=== PATIENT | male | born 1975 | race Two or more races ===

== ENCOUNTER → 2016-09-13 | Outpatient (REF) | payer BC | LOC: M SFHCPLAZ 12:40 | PROVIDERS: ATTEND Internal Medicine | DX: Z13.1 Encounter for screening for diabetes mellitus (principal); Z13.220 Encounter for screening for lipoid disorders ==

== ENCOUNTER → 2016-11-14 | Outpatient (CLI) | payer BC | LOC: M OUTALCOH 08:19 | PROVIDERS: ATTEND Psychiatry & Neurology Psychiatry | DX: F10.20 Alcohol dependence, uncomplicated (principal); F11.20 Opioid dependence, uncomplicated ==

== ENCOUNTER 2016-12-01 14:00 | Outpatient (RCR) | payer BC | END 2016-12-03 | LOC: M OUTALCOH 14:00 | PROVIDERS: ATTEND Psychiatry & Neurology Psychiatry | DX: F10.20 Alcohol dependence, uncomplicated (principal); F11.20 Opioid dependence, uncomplicated ==

== ENCOUNTER 2017-02-01 15:00 | Outpatient (RCR) | payer BC | END 2017-02-02 | LOC: M OUTALCOH 15:00 | PROVIDERS: ATTEND Psychiatry & Neurology Psychiatry | DX: F10.20 Alcohol dependence, uncomplicated (principal); F11.20 Opioid dependence, uncomplicated ==

== ENCOUNTER 2017-02-03 10:14 | Outpatient (RCR) | payer BC | END 2017-03-05 | LOC: M OUTALCOH 10:14 | DX: F10.20 Alcohol dependence, uncomplicated (principal); F11.20 Opioid dependence, uncomplicated ==

== ENCOUNTER 2017-03-08 16:00 | Outpatient (RCR) | payer BC | END 2017-04-05 | LOC: M OUTALCOH 03-13 14:00 | DX: F10.20 Alcohol dependence, uncomplicated (principal); F11.20 Opioid dependence, uncomplicated ==

== ENCOUNTER 2017-04-06 09:11 | Outpatient (RCR) | payer BC, SELFPAY | END 2017-05-03 | LOC: M OUTALCOH 04-10 14:00 | DX: F10.20 Alcohol dependence, uncomplicated (principal); F11.20 Opioid dependence, uncomplicated | CPT/HCPCS: 90834 ==

== ENCOUNTER 2017-05-04 11:00 | Outpatient (RCR) | payer SELFPAY, BC | END 2017-06-03 | LOC: M OUTALCOH 05-08 16:00 | DX: F10.20 Alcohol dependence, uncomplicated (principal); F11.20 Opioid dependence, uncomplicated ==

== ENCOUNTER 2017-06-12 09:56 | Outpatient (RCR) | payer SELFPAY | END 2017-07-03 | LOC: M OUTALCOH 06-19 16:00 | DX: F10.20 Alcohol dependence, uncomplicated (principal); F11.20 Opioid dependence, uncomplicated ==

== ENCOUNTER 2017-07-13 11:00 | Outpatient (RCR) | payer BC, SELFPAY | END 2017-08-03 | LOC: M OUTALCOH 07-19 16:00 | DX: F10.20 Alcohol dependence, uncomplicated (principal); F11.20 Opioid dependence, uncomplicated ==

== ENCOUNTER 2017-08-09 16:43 | Outpatient (RCR) | payer BC | END 2017-09-02 | LOC: M OUTALCOH 16:43 | DX: F10.20 Alcohol dependence, uncomplicated (principal); F11.20 Opioid dependence, uncomplicated ==

== ENCOUNTER 2017-09-14 08:42 | Outpatient (RCR) | payer BC, MEDICAID | END 2017-10-03 | LOC: M OUTALCOH 08:42 | DX: F10.20 Alcohol dependence, uncomplicated (principal); F11.20 Opioid dependence, uncomplicated ==

== ENCOUNTER 2017-10-06 11:32 | Outpatient (RCR) | payer OTHER, BC | END 2017-11-03 | LOC: M OUTALCOH 10-30 10:00 | DX: F10.20 Alcohol dependence, uncomplicated (principal); F11.20 Opioid dependence, uncomplicated ==

== ENCOUNTER 2024-07-04 10:09 | Emergency (ER) | payer OTHER, SELFPAY ==
[~2024-07-04] VITALS: Ht 165.1 cm; Wt 145.0 kg
[2024-07-04 10:52] LABS: BASO % 0.4 % (0.0-1.0); EOS # 0.1 10^3/uL (0.0-0.5); HEMATOCRIT 43.8 % (42.0-52.0); HEMOGLOBIN 14.8 g/dl (13.5-17.5); LYMPH # 1.9 10^3/uL (1.5-5.0); LYMPH % 20.8 % (24.0-44.0); MEAN CORPUSCULAR HEMOGLOBIN 32.3 pg (27.0-33.0); MEAN CORPUSCULAR HGB CONC 33.8 g/dl (32.0-36.5); MEAN CORPUSCULAR VOLUME 95.6 fl (80.0-96.0); MONO # 0.7 10^3/uL (0.0-0.8); MONO % 7.4 % (2.0-8.0); NEUTROPHILS # 6.5 10^3/uL (1.5-8.5); NEUTROPHILS % 70.2 % (36.0-66.0); PLATELET COUNT, AUTOMATED 228 10^3/uL (150-450); RED BLOOD COUNT 4.58 10^6/uL (4.30-6.10); WHITE BLOOD COUNT 9.3 10^3/uL (4.0-10.0)
[2024-07-04 11:17] LABS: LIPASE 45 U/L (12-53)
[2024-07-04 11:19] LABS: ALKALINE PHOSPHATASE 206 U/L (40-129); ALT/SGPT 51 U/L (7.0-40); AST/SGOT 104 U/L (<34); BILIRUBIN,DIRECT 0.3 MG/DL (<0.4); BILIRUBIN,TOTAL 0.6 MG/DL (0.3-1.2); CK-MB VALUE MASS < 1.0 NG/ML (<3.6); TOTAL PROTEIN 7.5 G/DL (5.7-8.2)
[2024-07-04 11:24] LABS: CPK CREATINE PHOSPHOKINASE 144 U/L (46-171); MB/CK RELATIVE INDEX 0.69 (< OR =4)
[2024-07-04] MEDS ORDERED: NS (Normal Saline) 0.9% 1,000 ML IV ONE (12:00)
[2024-07-04] MEDS: KETOROLAC 30 MG/ML 1ML VIAL IV ONE (12:07)
[2024-07-04] MEDS ORDERED: ISOVUE-370 76% 100ML VIAL As Ordered ONE (12:07)
[2024-07-04 12:19] LABS: ETHYL ALCOHOL (ETHANOL) 0.025 % (0.000-0.010)
[2024-07-04] MEDS ORDERED: OMEP-173 PO (13:48)
[2024-07-04] MEDS ORDERED: AMOX875T2 PO (13:48)
[2024-07-04 13:53] VITALS: BP 170/87; TEMP 98.1; O2SAT 97
[2024-07-04] MEDS: PANTOPRAZOLE 40MG VIAL IV ONE (13:53)
== END 2024-07-04 14:04 | disposition home or self-care (01) ==
LOC: M ED 10:09
DX: K80.20 Calculus of gallbladder without cholecystitis without obstruction (principal); Z98.84 Bariatric surgery status; R16.0 Hepatomegaly, not elsewhere classified; K76.0 Fatty (change of) liver, not elsewhere classified
CPT/HCPCS: 74177; 80047; 80076; 82077; 82550; 82553; 83690; 84484; 85025; 93005; 96374; 96375; 99284; J1885; J2470; Q9967

== ENCOUNTER 2025-01-16 17:58 | Emergency (ER) | payer BC, SELFPAY ==
[~2025-01-16] VITALS: Ht 167.6 cm; Wt 170.0 kg
[~2025-01-16 17:58] MED LIST: AMOX875T2 PO; OMEP-173 PO
[2025-01-16 22:38] LABS: BASO # 0.0 10^3/uL (0.0-0.2); BASO % 0.5 % (0.0-1.0); EOS # 0.4 10^3/uL (0.0-0.5); EOS % 5.4 % (0.0-3.0); LYMPH # 1.6 10^3/uL (1.5-5.0); LYMPH % 24.7 % (24.0-44.0); MONO # 0.7 10^3/uL (0.0-0.8); MONO % 10.9 % (2.0-8.0); NEUTROPHILS # 3.8 10^3/uL (1.5-8.5); NEUTROPHILS % 58.3 % (36.0-66.0); PLATELET COUNT, AUTOMATED 176 10^3/uL (150-450)
[2025-01-16 23:11] LABS: C REACTIVE PROTEIN QUANTITATIV 3.07 MG/DL (<1.0)
[2025-01-16 23:12] LABS: ALT/SGPT 43 U/L (7.0-40); AST/SGOT 90 U/L (<34); CALCIUM LEVEL 8.3 MG/DL (8.5-10.1); CARBON DIOXIDE LEVEL 31 MMOL/L (20-31); CHLORIDE LEVEL 99 MMOL/L (98-107); CREATININE FOR GFR 0.75 MG/DL (0.70-1.30); GLOMERULAR FILTRATION RATE > 90.0 (>60); POTASSIUM SERUM 5.1 MMOL/L (3.5-5.1); SODIUM LEVEL 138 MMOL/L (136-145)
[2025-01-16 23:53] VITALS: BP 169/89
[2025-01-16] MEDS: FUROSEMIDE 40 MG/4 ML VIAL IV ONE (23:53)
[2025-01-16 23:58] LABS: D-DIMER QUANT 2.94 ug/mL (<0.5)
[2025-01-17 00:21] LABS: APPEARANCE, URINE CLEAR (CLEAR); BACTERIA, URINE AUTO NEGATIVE (NEGATIVE); BILIRUBIN, URINE AUTO NEGATIVE (NEGATIVE); BLOOD, URINE BLOOD NEGATIVE (NEGATIVE); GLUCOSE, URINE (UA) AUTO NEGATIVE (NEGATIVE); KETONE, URINE AUTO NEGATIVE (NEGATIVE); LEUKOCYTE ESTERASE, URINE AUTO NEGATIVE (NEGATIVE); NITRITE, URINE AUTO NEGATIVE (NEGATIVE); PROTEIN, URINE AUTO NEGATIVE (NEGATIVE); RBC, URINE AUTO 0 /HPF (0-3); SPECIFIC GRAVITY URINE AUTO 1.006 (1.002-1.035); SQUAMOUS EPITHELIAL CELL UR AU 0 /HPF (0-6); UROBILINOGEN, URINE AUTO 4.0 mg/dL (0.0-2.0); WBC, URINE AUTO 0 /HPF (0-3)
[2025-01-17 00:43] LABS: INR 1.07
[2025-01-17] MEDS ORDERED: ISOVUE-370 76% 100 ML VIAL As Ordered ONE (00:45)
[2025-01-17] MEDS: KETOROLAC 30 MG/ML 1 ML VIAL IV ONE (02:23)
[2025-01-17] MEDS ORDERED: LASI20TA3 PO (04:39)
[2025-01-17] MEDS ORDERED: POTA-150 PO (04:39)
[2025-01-17] MEDS ORDERED: ELIQ5TAB PO (04:39)
[2025-01-17 04:42] VITALS: BP 165/80; TEMP 98; O2SAT 98
[2025-01-17] MEDS: APIXABAN 5 MG TAB PO ONE (05:03)
== END 2025-01-17 05:30 | disposition home or self-care (01) ==
LOC: M ED 17:58
DX: R22.41 Localized swelling, mass and lump, right lower limb (principal); I26.99 Other pulmonary embolism without acute cor pulmonale; K76.0 Fatty (change of) liver, not elsewhere classified; I45.81 Long QT syndrome; Z79.01 Long term (current) use of anticoagulants; Z79.899 Other long term (current) drug therapy; Z98.84 Bariatric surgery status
CPT/HCPCS: 71045; 71275; 74177; 80048; 80076; 81001; 83880; 84145; 85025; 85379; 85610; 85652; 85730; 86140; 93005; 93970; 96374; 96375; 99284; J1885; J1938; Q9967

== ENCOUNTER 2025-01-22 10:55 | Inpatient (IN) | payer BC ==
[~2025-01-22] VITALS: Ht 167.6 cm; Wt 157.6 kg
[~2025-01-22 10:55] MED LIST changes: +ELIQ5TAB PO; +LASI20TA3 PO; +POTA-150 PO
[2025-01-22 11:51] LABS: APPEARANCE, URINE CLEAR (CLEAR); BACTERIA, URINE AUTO NEGATIVE (NEGATIVE); BILIRUBIN, URINE AUTO NEGATIVE (NEGATIVE); BLOOD, URINE BLOOD NEGATIVE (NEGATIVE); GLUCOSE, URINE (UA) AUTO NEGATIVE (NEGATIVE); KETONE, URINE AUTO NEGATIVE (NEGATIVE); LEUKOCYTE ESTERASE, URINE AUTO NEGATIVE (NEGATIVE); NITRITE, URINE AUTO NEGATIVE (NEGATIVE); PROTEIN, URINE AUTO NEGATIVE (NEGATIVE); RBC, URINE AUTO 0 /HPF (0-3); SPECIFIC GRAVITY URINE AUTO 1.005 (1.002-1.035); SQUAMOUS EPITHELIAL CELL UR AU 0 /HPF (0-6); UROBILINOGEN, URINE AUTO 0.2 mg/dL (0.0-2.0); WBC, URINE AUTO 0 /HPF (0-3)
[2025-01-22] MEDS: TETANUS/DIPHTH/ACEL. PERTUSSIS 0.5 ML SYR IM.IMMUN ONE (12:20)
[2025-01-22] MEDS: KETOROLAC 30 MG/ML 1 ML VIAL IV ONE (12:40)
[2025-01-22] MEDS: FUROSEMIDE 40 MG/4 ML VIAL IV ONE (12:41)
[2025-01-22 12:58] LABS: BASO # 0.0 10^3/uL (0.0-0.2); BASO % 0.4 % (0.0-1.0); EOS # 0.2 10^3/uL (0.0-0.5); EOS % 2.9 % (0.0-3.0); LYMPH # 1.2 10^3/uL (1.5-5.0); LYMPH % 15.6 % (24.0-44.0); MONO # 0.7 10^3/uL (0.0-0.8); MONO % 9.6 % (2.0-8.0); NEUTROPHILS # 5.3 10^3/uL (1.5-8.5); NEUTROPHILS % 71.2 % (36.0-66.0); PLATELET COUNT, AUTOMATED 166 10^3/uL (150-450)
[2025-01-22 13:18] LABS: ALT/SGPT 38 U/L (7.0-40); AST/SGOT 55 U/L (<34); C REACTIVE PROTEIN QUANTITATIV 4.08 MG/DL (<1.0); CALCIUM LEVEL 7.7 MG/DL (8.5-10.1); CARBON DIOXIDE LEVEL 29 MMOL/L (20-31); CHLORIDE LEVEL 95 MMOL/L (98-107); CREATININE FOR GFR 1.02 MG/DL (0.70-1.30); GLOMERULAR FILTRATION RATE > 90.0 (>60); POTASSIUM SERUM 4.0 MMOL/L (3.5-5.1); SODIUM LEVEL 135 MMOL/L (136-145)
[2025-01-22] MEDS ORDERED: BUPR1FIL SL (14:50)
[2025-01-22] MEDS ORDERED: BENA25CA4 PO (14:51)
[2025-01-22] MEDS ORDERED: HOME MED LIST COMPLETE! XX SCH (14:55)
[2025-01-22] MEDS: THIAMINE 200MG 2ML VIAL IV ONE (15:30)
[2025-01-22] MEDS: FOLIC ACID 1 MG TAB PO SCH (16:45)
[2025-01-22] MEDS: amLODIPine 5 MG TAB PO ONE (16:45)
[2025-01-22] MEDS: MULTIVITAMINS/MINERALS THERAP 1 TAB PO SCH (16:45)
[2025-01-22] MEDS: FUROSEMIDE 40 MG/4 ML VIAL IV SCH (16:46)
[2025-01-22] MEDS: traMADol 50 MG TAB PO PRN (20:33)
[2025-01-22] MEDS: APIXABAN 5 MG TAB PO SCH (20:33)
[2025-01-23 03:45] VITALS: BP 154/66; TEMP 98.4; O2SAT 97
[2025-01-23] MEDS: amLODIPine 5 MG TAB PO SCH ×2 (06:45→21:56)
[2025-01-23] MEDS: BUPRENORPHINE/NALOXONE 8-2MG SUBLINGUAL TABLET(SUBOXONE) SL SCH (08:16)
[2025-01-23] MEDS: THIAMINE 100 MG TAB PO SCH (08:17)
[2025-01-23 08:57] LABS: ALT/SGPT 31 U/L (7.0-40); AST/SGOT 47 U/L (<34); CALCIUM LEVEL 7.8 MG/DL (8.5-10.1); CARBON DIOXIDE LEVEL 31 MMOL/L (20-31); CHLORIDE LEVEL 98 MMOL/L (98-107); CREATININE FOR GFR 1.00 MG/DL (0.70-1.30); GLOMERULAR FILTRATION RATE > 90.0 (>60); MAGNESIUM LEVEL 2.1 MG/DL (1.8-2.4); POTASSIUM SERUM 3.9 MMOL/L (3.5-5.1); SODIUM LEVEL 138 MMOL/L (136-145)
[2025-01-23 13:00] VITALS: BP 169/78; TEMP 98.2; O2SAT 98
[2025-01-23 14:36] VITALS: BP 159/71
[2025-01-23 19:56] VITALS: BP 137/66; TEMP 101.5; O2SAT 97
[2025-01-23 20:25] VITALS: TEMP 100.1
[2025-01-23 21:37] LABS: INR 1.52
[2025-01-23] MEDS: SPIRONOLACTONE 25 MG TAB PO SCH (21:55)
[2025-01-23 22:00] VITALS: BP 137/66; TEMP 101.5
[2025-01-23 22:52] LABS: BASO # 0.0 10^3/uL (0.0-0.2); BASO % 0.3 % (0.0-1.0); EOS # 0.1 10^3/uL (0.0-0.5); EOS % 0.8 % (0.0-3.0); LYMPH # 0.6 10^3/uL (1.5-5.0); LYMPH % 10.6 % (24.0-44.0); MONO # 0.5 10^3/uL (0.0-0.8); MONO % 8.3 % (2.0-8.0); NEUTROPHILS # 4.8 10^3/uL (1.5-8.5); NEUTROPHILS % 79.8 % (36.0-66.0); PLATELET COUNT, AUTOMATED 148 10^3/uL (150-450)
[2025-01-23] MEDS: ACETAMINOPHEN *IV* 1,000 MG in IV 1 EA IV ONE (23:53)
[2025-01-24] VITALS (13 sets, daily range): BP systolic 123–159; BP diastolic 59–78; TEMP 98.1–102.3; O2SAT 92–97
[2025-01-24 00:47] LABS: KETONE, URINE AUTO RFX NEGATIVE (NEGATIVE); LEUKOCYTE ESTERASE UR AUTO RFX NEGATIVE (NEGATIVE); MUCUS, URINE RFX SMALL (NEGATIVE); NITRITE, URINE AUTO RFX NEGATIVE (NEGATIVE); RBC, URINE AUTO RFX 0 /HPF (0-3); SQUAM EPITHELIAL CELL UR AURFX 1 /HPF (0-6); WBC, URINE AUTO RFX 1 /HPF (0-3)
[2025-01-24] MEDS ORDERED: VANCOMYCIN HCL 1,000 MG, VIAL MATE ADAPTER 1 EACH in NS 250 ML IV ONE (01:20)
[2025-01-24] MEDS: KETOROLAC 30 MG/ML 1 ML VIAL IV ONE (01:23)
[2025-01-24] MEDS: VANCOMYCIN HCL 2,000 MG, VIAL MATE ADAPTER 1 EACH in NS 500 ML IV ONE (02:06)
[2025-01-24] MEDS: VANCOMYCIN HCL 1,250 MG, VIAL MATE ADAPTER 1 EACH in NS 250 ML IV SCH (10:10)
[2025-01-24 10:14] LABS: BASO # 0.0 10^3/uL (0.0-0.2); BASO % 0.5 % (0.0-1.0); EOS # 0.0 10^3/uL (0.0-0.5); EOS % 0.0 % (0.0-3.0); LYMPH # 0.6 10^3/uL (1.5-5.0); LYMPH % 14.3 % (24.0-44.0); MONO # 0.4 10^3/uL (0.0-0.8); MONO % 9.1 % (2.0-8.0); NEUTROPHILS # 3.4 10^3/uL (1.5-8.5); NEUTROPHILS % 75.9 % (36.0-66.0); PLATELET COUNT, AUTOMATED 132 10^3/uL (150-450)
[2025-01-24 10:31] LABS: ALT/SGPT 33 U/L (7.0-40); AST/SGOT 58 U/L (<34); CALCIUM LEVEL 8.0 MG/DL (8.5-10.1); CARBON DIOXIDE LEVEL 31 MMOL/L (20-31); CHLORIDE LEVEL 98 MMOL/L (98-107); CREATININE FOR GFR 0.90 MG/DL (0.70-1.30); GLOMERULAR FILTRATION RATE > 90.0 (>60); POTASSIUM SERUM 4.2 MMOL/L (3.5-5.1); SODIUM LEVEL 139 MMOL/L (136-145)
[2025-01-24] MEDS: FUROSEMIDE 40 MG/4 ML VIAL IV SCH (16:54)
[2025-01-24] MEDS: **hydrALAZINE** 10 MG TAB PO SCH (16:54)
[2025-01-24] MEDS: SPIRONOLACTONE 50 MG TAB PO SCH (18:00)
[2025-01-24] MEDS: ACETAMINOPHEN *IV* 1,000 MG in IV 1 EA IV ONE (19:43)
[2025-01-25] MEDS: RAMELTEON 8 MG TAB PO PRN (01:47)
[2025-01-25 04:00] VITALS: BP 155/69; TEMP 99.4; O2SAT 99
[2025-01-25 10:31] LABS: BASO # 0.0 10^3/uL (0.0-0.2); BASO % 0.8 % (0.0-1.0); EOS # 0.0 10^3/uL (0.0-0.5); EOS % 0.8 % (0.0-3.0); LYMPH # 0.9 10^3/uL (1.5-5.0); LYMPH % 23.8 % (24.0-44.0); MONO # 0.7 10^3/uL (0.0-0.8); MONO % 17.4 % (2.0-8.0); NEUTROPHILS # 2.1 10^3/uL (1.5-8.5); NEUTROPHILS % 56.9 % (36.0-66.0); PLATELET COUNT, AUTOMATED 118 10^3/uL (150-450)
[2025-01-25 10:49] LABS: VANCOMYCIN LEVEL TROUGH 18.1 UG/ML (10.0-20.0)
[2025-01-25 10:50] LABS: CALCIUM LEVEL 7.8 MG/DL (8.5-10.1); CARBON DIOXIDE LEVEL 32 MMOL/L (20-31); CHLORIDE LEVEL 100 MMOL/L (98-107); CREATININE FOR GFR 0.84 MG/DL (0.70-1.30); GLOMERULAR FILTRATION RATE > 90.0 (>60); POTASSIUM SERUM 4.0 MMOL/L (3.5-5.1); SODIUM LEVEL 140 MMOL/L (136-145)
[2025-01-25 12:00] VITALS: BP 137/64; TEMP 98.5; O2SAT 98
[2025-01-25] MEDS: VANCOMYCIN HCL 1,500 MG, VIAL MATE ADAPTER 1 EACH in NS 500 ML IV SCH (13:25)
[2025-01-25 20:00] VITALS: BP 152/69; TEMP 99.3; O2SAT 98
[2025-01-26 04:27] VITALS: BP 121/55; TEMP 98.3; O2SAT 97
[2025-01-26 06:43] LABS: BASO # 0.0 10^3/uL (0.0-0.2); BASO % 0.6 % (0.0-1.0); EOS # 0.2 10^3/uL (0.0-0.5); EOS % 4.2 % (0.0-3.0); LYMPH # 1.6 10^3/uL (1.5-5.0); LYMPH % 32.2 % (24.0-44.0); MONO # 0.9 10^3/uL (0.0-0.8); MONO % 18.3 % (2.0-8.0); NEUTROPHILS # 2.1 10^3/uL (1.5-8.5); NEUTROPHILS % 44.5 % (36.0-66.0); PLATELET COUNT, AUTOMATED 115 10^3/uL (150-450)
[2025-01-26 07:18] LABS: CALCIUM LEVEL 7.3 MG/DL (8.5-10.1); CARBON DIOXIDE LEVEL 34 MMOL/L (20-31); CHLORIDE LEVEL 100 MMOL/L (98-107); CREATININE FOR GFR 0.75 MG/DL (0.70-1.30); GLOMERULAR FILTRATION RATE > 90.0 (>60); POTASSIUM SERUM 3.5 MMOL/L (3.5-5.1); SODIUM LEVEL 140 MMOL/L (136-145)
[2025-01-26] MEDS: ALPRAZolam 0.5 MG TAB PO ONE (07:48)
[2025-01-26] MEDS: POTASSIUM CHLORIDE 10MEQ SR TABLET PO ONE (09:48)
[2025-01-26] MEDS: SPIRONOLACTONE 50 MG TAB PO SCH (09:48)
[2025-01-26 12:00] VITALS: BP 128/59; TEMP 98; O2SAT 96
[2025-01-26] MEDS: ceFAZolin SODIUM 2 GM in DEXTROSE 5% (D5W) ADV/MINI-BAG 50 ML IV SCH (12:23)
[2025-01-26 19:54] VITALS: BP 140/65; TEMP 97.6; O2SAT 98
[2025-01-26] MEDS: ALPRAZolam 0.5 MG TAB PO SCH (20:11)
[2025-01-27 05:12] VITALS: BP 136/78; TEMP 98; O2SAT 98
[2025-01-27 05:59] LABS: BASO # 0.0 10^3/uL (0.0-0.2); BASO % 0.5 % (0.0-1.0); EOS # 0.4 10^3/uL (0.0-0.5); EOS % 9.6 % (0.0-3.0); LYMPH # 1.6 10^3/uL (1.5-5.0); LYMPH % 38.8 % (24.0-44.0); MONO # 0.4 10^3/uL (0.0-0.8); MONO % 10.0 % (2.0-8.0); NEUTROPHILS # 1.7 10^3/uL (1.5-8.5); NEUTROPHILS % 40.9 % (36.0-66.0); PLATELET COUNT, AUTOMATED 129 10^3/uL (150-450)
[2025-01-27 06:25] LABS: ALT/SGPT 31 U/L (7.0-40); AST/SGOT 51 U/L (<34); CALCIUM LEVEL 7.6 MG/DL (8.5-10.1); CARBON DIOXIDE LEVEL 33 MMOL/L (20-31); CHLORIDE LEVEL 100 MMOL/L (98-107); CREATININE FOR GFR 0.72 MG/DL (0.70-1.30); GLOMERULAR FILTRATION RATE > 90.0 (>60); POTASSIUM SERUM 3.7 MMOL/L (3.5-5.1); SODIUM LEVEL 141 MMOL/L (136-145)
[2025-01-27] MEDS: APIXABAN 5 MG TAB PO SCH (08:22)
[2025-01-27] MEDS: SANTYL OINT 30GM TOP SCH (08:23)
[2025-01-27 11:44] VITALS: BP 140/63; TEMP 97.8; O2SAT 94
[2025-01-27 20:00] VITALS: BP 134/60; TEMP 97.5; O2SAT 96
[2025-01-28 04:00] VITALS: BP 115/66; TEMP 98.4; O2SAT 96
[2025-01-28 06:10] LABS: BASO # 0.0 10^3/uL (0.0-0.2); BASO % 0.6 % (0.0-1.0); EOS # 0.5 10^3/uL (0.0-0.5); EOS % 9.3 % (0.0-3.0); LYMPH # 1.9 10^3/uL (1.5-5.0); LYMPH % 37.2 % (24.0-44.0); MONO # 0.6 10^3/uL (0.0-0.8); MONO % 11.1 % (2.0-8.0); NEUTROPHILS # 2.1 10^3/uL (1.5-8.5); NEUTROPHILS % 41.6 % (36.0-66.0); PLATELET COUNT, AUTOMATED 138 10^3/uL (150-450)
[2025-01-28 06:28] LABS: CALCIUM LEVEL 8.1 MG/DL (8.5-10.1); CARBON DIOXIDE LEVEL 33 MMOL/L (20-31); CHLORIDE LEVEL 99 MMOL/L (98-107); CREATININE FOR GFR 0.72 MG/DL (0.70-1.30); GLOMERULAR FILTRATION RATE > 90.0 (>60); POTASSIUM SERUM 3.8 MMOL/L (3.5-5.1); SODIUM LEVEL 141 MMOL/L (136-145)
[2025-01-28] MEDS ORDERED: AMLO1TAB24 PO (09:43)
[2025-01-28] MEDS ORDERED: HYDR-161 PO (09:43)
[2025-01-28] MEDS ORDERED: ALDA50TA2 PO (09:43)
[2025-01-28] MEDS ORDERED: LASI40TA9 PO (09:43)
[2025-01-28] MEDS ORDERED: THERTAB19 PO (09:43)
[2025-01-28] MEDS ORDERED: NYST1POW3 TOP (09:43)
[2025-01-28 11:01] VITALS: BP 155/74
[2025-01-28 12:00] VITALS: BP 166/70; TEMP 98.4; O2SAT 96
[2025-01-28 14:12] VITALS: BP 166/70; TEMP 98.4; O2SAT 96
== END 2025-01-28 15:41 | disposition home or self-care (01) | DRG 720 ==
LOC: M ED 10:55 → M ED INP 14:41 → M MS4PR 01-23 03:25
PROVIDERS: ADMIT Student in an Organized Health Care Education/Training Program; ATTEND Internal Medicine
DX: A41.01 Sepsis due to Methicillin susceptible Staphylococcus aureus (principal); I50.33 Acute on chronic diastolic (congestive) heart failure; I11.0 Hypertensive heart disease with heart failure; K74.60 Unspecified cirrhosis of liver; K76.0 Fatty (change of) liver, not elsewhere classified; G47.33 Obstructive sleep apnea (adult) (pediatric); F10.10 Alcohol abuse, uncomplicated; L40.8 Other psoriasis; Z86.711 Personal history of pulmonary embolism; Z79.01 Long term (current) use of anticoagulants; Z98.84 Bariatric surgery status; Z91.199 Patient's noncompliance with other medical treatment and regimen due to unspecified reason; L03.115 Cellulitis of right lower limb; Z79.899 Other long term (current) drug therapy

== ENCOUNTER 2025-01-29 09:19 | Outpatient (CLI) | payer BC ==
[~2025-01-29] VITALS: Ht 167.6 cm; Wt 118.2 kg
[~2025-01-29 09:19] MED LIST changes: +ALDA50TA2 PO; +AMLO1TAB24 PO; +BENA25CA4 PO; +BUPR1FIL SL; +HYDR-161 PO; +LASI40TA9 PO; +NYST1POW3 TOP; +THERTAB19 PO
[2025-01-29 09:55] VITALS: BP 151/79; O2SAT 98
[2025-01-29] MEDS: DALBAVANCIN 1,500 MG in D5W 250 ML IV ONE (10:46)
[2025-01-29 12:00] VITALS: BP 166/78; O2SAT 98
== END 2025-01-29 12:00 | disposition home or self-care (01) ==
LOC: M INFU 09:19
PROVIDERS: ATTEND Internal Medicine
DX: B95.61 Methicillin susceptible Staphylococcus aureus infection as the cause of diseases classified elsewhere (principal)
CPT/HCPCS: 96365; J0875